=== PATIENT | female | born 1940 | race African-American/Black ===

== ENCOUNTER 2020-09-29 15:26 | Observation (INO) ==
[2020-09-29] MEDS ORDERED: DEXTROSE 50% 25 GM/50 ML VIAL IV PRN ×2 (18:26→18:51)
[2020-09-29] MEDS ORDERED: GLUCAGON 1 MG VIAL IM PRN ×2 (18:26→18:51)
[2020-09-29 18:51] LABS: Basophils % 0.6 % (0.0-0.8); Eosinophils # 0.2 10*3/uL (0.0-0.87); Eosinophils % 5.7 % (0.00-10.9); Hematocrit 41.3 VOL% (35.7-47.0); Hemoglobin 13.1 GM/DL (12.0-16.0); Immature Granulocytes % 0.3 %; Immature Granulocytes Absolute 0.01 #; Lymphocytes % 30.1 % (21.3-54.2); Mean Corpuscular HGB Conc 31.7 GM/DL (32-36); Mean Corpuscular Volume 92.6 FL (87-102); Mean Platelet Volume 10.4 FL (9.6-12.0); Monocytes % 19.6 % (1.7-12.7); Neutrophils % 43.7 % (38.7-73.9); Platelet Count 197 T/CUMM (130-400); Red Blood Count 4.46 MC/CUMM (3.8-5.5); Red Cell Distribution Width 16.2 % (9.3-17.3); White Blood Count 3.2 T/CUMM (4-12)
[2020-09-29 19:19] LABS: Albumin 3.8 G/DL (3.4-5.0); Bilirubin,Total 0.8 MG/DL (0.2-1.0); Calcium 8.9 MG/DL (8.5-10.1); Osmolality,Calculated 279.8 MOS/KG (273-304); Potassium 3.8 MMOL/L (3.5-5.1); Thyroid Stimulating Hormone 2.09 uIU/ml (0.358-3.74); Total Protein 7.9 G/DL (6.4-8.2)
[2020-09-29 20:28] LABS: Eosinophils 7 % (0-10); Lymphocytes 41 % (20-55); Segmented Neutrophils 42 % (50-85); Total Cells Counted 100
[2020-09-29] MEDS ORDERED: ENOXAPARIN 40 MG/0.4 ML SYRINGE SUBCUT SCH (21:00)
[2020-09-29] MEDS: INSULIN LISPRO 100 UNIT/ML SUBCUT SCH (22:14)
[2020-09-29] MEDS: HEPARIN 5,000 UNIT/1 ML VIAL SUBCUT SCH (22:16)
[2020-09-30 05:00] LABS: Basophils % 1.4 % (0.0-0.8); Eosinophils # 0.2 10*3/uL (0.0-0.87); Eosinophils % 7.1 % (0.00-10.9); Hematocrit 38.8 VOL% (35.7-47.0); Hemoglobin 12.6 GM/DL (12.0-16.0); Immature Granulocytes % 0.4 %; Immature Granulocytes Absolute 0.01 #; Lymphocytes # 0.9 10*3/uL (1.4-4.0); Lymphocytes % 33.5 % (21.3-54.2); Mean Corpuscular HGB Conc 32.5 GM/DL (32-36); Mean Corpuscular Volume 90.4 FL (87-102); Mean Platelet Volume 11.2 FL (9.6-12.0); Monocytes % 17.8 % (1.7-12.7); Neutrophils % 39.8 % (38.7-73.9); Platelet Count 181 T/CUMM (130-400); Red Blood Count 4.29 MC/CUMM (3.8-5.5); White Blood Count 2.8 T/CUMM (4-12)
[2020-09-30 05:25] LABS: Calcium 8.9 MG/DL (8.5-10.1); Eosinophils 6 % (0-10); Hypochromasia 1+; Lymphocytes 36 % (20-55); Microcytosis 1+; Osmolality,Calculated 283.5 MOS/KG (273-304); Platelet Estimate Adequate; Potassium 4.1 MMOL/L (3.5-5.1); Segmented Neutrophils 34 % (50-85); Total Cells Counted 100
[2020-09-30 05:29] LABS: Risk Ratio 2.64
[2020-09-30] MEDS: HEPARIN 5,000 UNIT/1 ML VIAL SUBCUT SCH (06:09)
[2020-09-30] MEDS: INSULIN LISPRO 100 UNIT/ML SUBCUT SCH (07:59)
[2020-09-30] MEDS ORDERED: ASPIRIN 325 MG TABLET PO SCH (09:00)
[2020-09-30] MEDS ORDERED: allopurinoL 100 MG TABLET PO SCH (09:00)
[2020-09-30] MEDS ORDERED: PANTOPRAZOLE 40 MG TABLET PO SCH (09:00)
[2020-09-30] MEDS ORDERED: amLODIPine 10 MG TABLET PO SCH (09:00)
[2020-09-30 12:34] LABS: Troponin I 0.038 NG/ML (0.00-0.045)
[2020-09-30 17:28] VITALS: BP 174/76
== END 2020-09-30 18:00 | disposition home or self-care (01) ==
LOC: N.TELES → SUATTDRO 18:15
PROVIDERS: ADMIT Internal Medicine; ATTEND Internal Medicine